=== PATIENT | female | born 1980 | race Caucasian/White ===

== ENCOUNTER 2016-12-14 19:20 | Emergency (ER) | payer BC ==
[2016-12-14 19:48] VITALS: BP 102/71
[2016-12-14] MEDS ORDERED: Phenazopyridine TAB* 100 MG PO ONE (20:35)
[2016-12-14] MEDS ORDERED: Cephalexin CAP* 500 MG PO ONE (20:35)
--- NOTE | 2016-12-14 20:43 | UC ---
Complaint Female HPI - HPI Summary HPI Summary: 5 days of dysuria, hematuria and abdominal pain. - History Of Current Complaint Chief Complaint: UCGU Stated Complaint: POSS UTI Time Seen by Provider: 12/14/16 20:34 Hx Obtained From: Patient Hx Last Menstrual Period: 11/17/16 ?: No Onset/Duration: Sudden Onset, Lasting Days Timing: Constant Severity Initially: Mild Severity Currently: Moderate Character: Dull, Burning Aggravating Factor(s): Urination Associated Signs And Symptoms: Positive: Fever - Allergies/Home Medications Allergies/Adverse Reactions: Allergies Allergy/AdvReac Type Severity Reaction Status Date / Time No Known Allergies Allergy Verified 03/19/13 00:04 PMH/Surg Hx/FS Hx/Imm Hx Previously Healthy: Yes - Surgical History Surgical History: None - Family History Known Family History: Negative: Cardiac Disease, Hypertension - Social History Alcohol Use: None Substance Use Type: None Smoking Status (MU): Never Smoked Tobacco - Immunization History Most Recent Influenza Vaccination: none Most Recent Tetanus Shot: unknown Review of Systems Constitutional: Negative Skin: Negative Eyes: Negative ENT: Negative Respiratory: Negative Cardiovascular: Negative Gastrointestinal: Abdominal Pain Motor: Negative Neurovascular: Negative Musculoskeletal: Negative Neurological: Negative Psychological: Negative All Other Systems Reviewed And Are Negative: Yes Physical Exam Triage Information Reviewed: Yes Appearance: Well-Appearing, Well-Nourished, Pain Distress Vital Signs: Initial Vital Signs Temp 98.6 F 12/14/16 19:42 Pulse 81 12/14/16 19:42 Resp 18 12/14/16 19:42 BP 102/71 12/14/16 19:42 Pulse Ox 99 12/14/16 19:42 Vital Signs Reviewed: Yes Eye Exam: Normal Eyes: Positive: Conjunctiva Clear ENT: Positive: Normal ENT inspection, Hearing grossly normal, Pharynx normal, TMs normal Dental Exam: Normal Neck exam: Normal Neck: Positive: Supple, Nontender, No Lymphadenopathy Respiratory Exam: Normal Respiratory: Positive: Chest non-tender, Lungs clear, Normal breath sounds Cardiovascular Exam: Normal Cardiovascular: Positive: RRR, No Murmur, Pulses Normal Abdomen Description: Positive: No Organomegaly, Soft, CVA Tenderness (R) - neg, CVA Tenderness (L) - neg, Other: - lower abdominal tenderness Bowel Sounds: Positive: Present Musculoskeletal Exam: Normal Musculoskeletal: Positive: Strength Intact, ROM Intact, No Edema Neurological Exam: Normal Neurological: Positive: Alert, Muscle Tone Normal Psychological Exam: Normal Skin Exam: Normal Complaint Female Dx - Course Course Of Treatment: hx obtained exam performed, meds reviewe, UA pos for leuks and blood, given ABX and urine culture sent - Differential Dx/Diagnosis Differential Diagnosis/HQI/PQRI: Sexually Transmitted Disease, Ureteral Stone, Urinary Tract Infection Provider Diagnoses: UTI Discharge - Discharge Plan Condition: Stable Disposition: HOME Prescriptions: Cephalexin CAP* [Keflex CAP*] 500 mg PO BID #14 cap Patient Education Materials: Urinary Tract Infection in Women (ED) Referrals: Aldo Erickson MD [Primary Care Provider] - Additional Instructions: 1. Take the medication as prescribed. 2. Increase your fluid intake and get plenty of rest 3. Follow up with any worsening symtpoms
== END 2016-12-14 20:51 | disposition home or self-care (01) ==
LOC: UCEAST 19:20
DX: N39.0 Urinary tract infection, site not specified (principal)
CPT/HCPCS: 81003; 87086; 99212; A9270-GY; G0463

== ENCOUNTER 2018-05-19 11:17 | Inpatient (IN) | payer BC ==
--- NOTE | 2018-05-19 12:35 | HP ---
General Information - Reason for Visit 37 yo with with a twin gestation and babies with iugr/ less than 10 %ile in baby A. S/d ratio was elevated last week but improved this week This is an ivf at 37 weeks - General Information Maternal Age: 35 Grav: 2 Para: 0 SAB: 1 Estimated Due Date: 06/09/18 Determined By: Early Ultrasound Maternal Blood Type and Rh: O Positive - Results this Serology/RPR Result: Non-Reactive Rubella Result: Non-Immune HBsAg Result: Negative HIV Result: Negative GBS Culture Result: Negative Past Medical History Delivery History: See Records Pertinent Past Medical History: See Records - history of hydrosalpinx Pertinent Past Surgical History: See Records Pertinent Family History: Non-Contributory - Antepartal Records Antepartal Records: Reviewed, Complicated by: - gestational diabetes/ hsv/ vertex / vertex twins Exam Allergies/Adverse Reactions: Allergies No Known Allergies Allergy (Verified 03/19/13 00:04) - Exam Breast: Breast Exam Deferred Extremities: Edema - +1 Heart: Normal Rhythm/Heart Sounds HEENT: No Significant Findings Lungs: Clear Bilaterally Rectal: Rectal Exam Deferred Reflexes: DTR 2+ Targeted Exam Findings See L&D Outpatient Visit Provider Note for Findings: Yes Cervical Exam: 1cm Effacement: 80% Station: -1 Presenting Part: Vertex Membrane Status: Intact EFM Findings - External Monitor Findings Baseline Heart Rate: 140 - x2 External Monitor Findings: Accelerations Present, Variability Moderate Contractions: None Assessment/Plan - Assessment twins for indction for suspected growth restriction at 37 weeks - Obstetrical Risk Factors Obstetrical Risk Factors: IUGR - Plan Plan: Induction
[2018-05-19] MEDS ORDERED: Oxytocin in LR* 20 UNITS/1,000 ML BAG IVPB SCH (13:00)
[2018-05-19 13:14] LABS: Hematocrit 31 % (35-47); Hemoglobin 10.3 g/dl (12.0-16.0); Mean Corpuscular HGB Conc 34 g/dl (31-36); Mean Corpuscular Hemoglobin 28 pg (27-31); Mean Corpuscular Volume 84 fL (80-97); Mean Platelet Volume 10.8 um3 (7.4-10.4); Platelet Count 97 10^3/ul (150-450); Red Blood Count 3.67 10^6/ul (4.00-5.40); Red Cell Distribution Width 16 % (10.5-15); White Blood Count 6.1 10^3/ul (3.5-10.8)
[2018-05-19 13:37] LABS: ABS Basophils 0 10^3/ul (0-0.2); ABS Eosinophils 0 10^3/ul (0-0.6); ABS Monocytes 0.5 10^3/ul (0-0.8); ABS Neutrophils 4.5 10^3/ul (1.5-7.7); ABS Nucleated RBC 0 10^3/ul; Eosinophil % 0.7 % (0-6); Lymphocyte % 16.5 % (25-47); Nucleated Red Blood Cells % 0
[2018-05-19] MEDS ORDERED: OBEPIDURAL* 250 ML EPIDURAL ONE (18:56)
[2018-05-19] MEDS ORDERED: Famotidine TAB* 20 MG PO PRN (20:19)
[2018-05-19] MEDS ORDERED: Phenylephrine IV* 40 MCG/ML 10 ML SYRINGE IV PUSH PRN ×2 (20:19)
[2018-05-19] MEDS ORDERED: EPHEDrine (Pressors)* 50 MG/ML VIAL IV PUSH PRN ×2 (20:19)
[2018-05-19] MEDS ORDERED: Sodium Citrate/Citric Acid* 15 ML UDC PO PRN (20:19)
[2018-05-19] MEDS ORDERED: OBEPIDURAL* 250 ML EPIDURAL SCH (21:00)
[2018-05-20] MEDS ORDERED: Glycerin ADULT SUPP PR PRN (03:59)
[2018-05-20] MEDS ORDERED: Witch Hazel PAD* JAR TOPICAL PRN (03:59)
[2018-05-20] MEDS ORDERED: Measles, Mumps,Rubella VACC* 0.5 ML/VIAL SUBCUT ONE (03:59)
[2018-05-20] MEDS ORDERED: Dibucaine 1% 28.35 GM TUBE PR PRN (03:59)
[2018-05-20] MEDS ORDERED: Oxytocin in LR* 20 UNITS/1,000 ML BAG IVPB SCH (04:00)
[2018-05-20] MEDS ORDERED: ceFAZolin 2 GM PREMIX in ORs 2 GM/50 ML BAG IVPB ONE ×2 (04:02→04:06)
[2018-05-20] MEDS: Ibuprofen TAB* 600 MG PO PRN ×3 (05:48→20:12)
--- NOTE | 2018-05-20 06:26 | PROCNOTE ---
[facility] OB: Delivery Note - Delivery A Date of : 05/20/18 Time of : 03:02 [place] Sex: Male Weight at : 4 lb 13 oz Score 1 Minute: 9 Score 5 Minutes: 9 Gestational Age in Weeks and Days at Delivery: 37 Weeks and 1 Days Delivery Method: Spontaneous Vaginal Labor: Spontaneous Did Patient attempt ?: N/A, No Previous Amniotic Fluid: Clear Estimated Blood Loss: 500 Anesthesia/Analgesia: CEI for Labor Delivered By: Jarvis Coombs B Date of : 05/20/18 Time of : 03:09 Gestational Age in Weeks and Days at Delivery: 37 Weeks and 1 Days Delivery Method: Spontaneous Vaginal Labor: Spontaneous Did Patient attempt ?: N/A, No Previous Amniotic Fluid: Clear Estimated Blood Loss: 500 Anesthesia/Analgesia: CEI for Labor Delivered By: Jarvis Coombs - Nursery Level of Nursery: Regular/Bedside - Perineum Perineal Injury: 1st Degree - Events Delivery Events of Note: Pitocin During Labor, Difficult Delivery, Maternal Temperature during Labor
[2018-05-20] MEDS: Simethicone TAB* 80 MG TAB.CHEW PO SCH ×4 (12:57→21:42)
[2018-05-20] MEDS: Acetaminophen TAB* 325 MG PO PRN ×2 (12:57→18:10)
[2018-05-20] MEDS: Docusate CAP* 100 MG PO SCH ×2 (12:57→18:10)
[2018-05-20] MEDS: Levothyroxine TAB* 25 MCG TAB PO SCH (20:48)
[2018-05-21] MEDS: Docusate CAP* 100 MG PO SCH ×4 (00:48→20:55)
[2018-05-21] MEDS: Levothyroxine TAB* 25 MCG TAB PO SCH (06:31)
[2018-05-21] MEDS: Ibuprofen TAB* 600 MG PO PRN ×2 (06:31→13:48)
[2018-05-21 06:34] LABS: ABS Basophils 0.1 10^3/ul (0-0.2); ABS Eosinophils 0.1 10^3/ul (0-0.6); ABS Lymphocytes 1.6 10^3/ul (1.0-4.8); ABS Monocytes 0.6 10^3/ul (0-0.8); ABS Neutrophils 9.4 10^3/ul (1.5-7.7); ABS Nucleated RBC 0 10^3/ul; Eosinophil % 0.8 % (0-6); Hematocrit 21 % (35-47); Lymphocyte % 13.9 % (25-47); Mean Corpuscular HGB Conc 33 g/dl (31-36); Mean Corpuscular Hemoglobin 28 pg (27-31); Mean Corpuscular Volume 85 fL (80-97); Mean Platelet Volume 10.5 um3 (7.4-10.4); Nucleated Red Blood Cells % 0; Platelet Count 81 10^3/ul (150-450); Red Blood Count 2.51 10^6/ul (4.00-5.40); Red Cell Distribution Width 16 % (10.5-15); White Blood Count 11.8 10^3/ul (3.5-10.8)
[2018-05-21] MEDS: Ferrous Gluconate TAB* 324 MG TAB PO SCH ×2 (08:59→20:55)
[2018-05-21] MEDS: Acetaminophen TAB* 325 MG PO PRN (13:48)
[2018-05-22] MEDS: Acetaminophen TAB* 325 MG PO PRN ×2 (02:28→10:21)
[2018-05-22] MEDS: Ibuprofen TAB* 600 MG PO PRN ×2 (02:28→10:22)
[2018-05-22] MEDS: Levothyroxine TAB* 25 MCG TAB PO SCH (05:55)
[2018-05-22 08:09] VITALS: BP 107/52
[2018-05-22] MEDS: Ferrous Gluconate TAB* 324 MG TAB PO SCH (10:22)
[2018-05-22] MEDS: Docusate CAP* 100 MG PO SCH ×2 (10:22→14:33)
[2018-05-22 10:47] LABS: Hematocrit 20 % (35-47); Hemoglobin 6.7 g/dl (12.0-16.0); Mean Corpuscular HGB Conc 33 g/dl (31-36); Mean Corpuscular Hemoglobin 28 pg (27-31); Mean Corpuscular Volume 85 fL (80-97); Mean Platelet Volume 9.6 um3 (7.4-10.4); Platelet Count 94 10^3/ul (150-450); Red Cell Distribution Width 17 % (10.5-15); White Blood Count 8.5 10^3/ul (3.5-10.8)
--- NOTE | 2018-05-22 11:59 | PTEDU ---
Patient Name: FRITZ BLACKWELL FRITZ BLACKWELL selected video: Never Ever Shake a Baby to view on 05/22/2018 at 11:59:07 AM [id number]
== END 2018-05-22 21:30 | disposition home or self-care (01) | DRG 560 ==
LOC: MCHOBOUT 11:17 → MCHOB 12:38
PROVIDERS: ADMIT Obstetrics & Gynecology; ATTEND Obstetrics & Gynecology
PROC: 10E0XZZ Delivery of Products of Conception, External Approach (ICD-10-PCS; principal; 2018-05-20)
PROC: 3E033VJ Introduction of Other Hormone into Peripheral Vein, Percutaneous Approach (ICD-10-PCS; 2018-05-20)
PROC: 0HQ9XZZ Repair Perineum Skin, External Approach (ICD-10-PCS; 2018-05-20)
PROC: 10907ZC Drainage of Amniotic Fluid, Therapeutic from Products of Conception, Via Natural or Artificial Opening (ICD-10-PCS; 2018-05-20)
DX: O36.5931 Maternal care for other known or suspected poor fetal growth, third trimester, fetus 1 (principal); Z37.2 Twins, both liveborn; O24.429 Gestational diabetes mellitus in childbirth, unspecified control; O70.0 First degree perineal laceration during delivery; O77.0 Labor and delivery complicated by meconium in amniotic fluid; O32.1XX2 Maternal care for breech presentation, fetus 2; O30.043 Twin pregnancy, dichorionic/diamniotic, third trimester; O90.81 Anemia of the puerperium; D64.9 Anemia, unspecified; Z3A.37 37 weeks gestation of pregnancy
CPT/HCPCS: 36415; 85025; 85027; 85060; 86850; 86900; 86901; 88307; 90686; 90707; A9270-GY; J0690

== ENCOUNTER 2018-08-18 13:38 | Day surgery (SDC) | payer BC ==
[2018-08-18] MEDS ORDERED: Dexamethasone TAB* 4 MG ONE (14:25)
[2018-08-18] MEDS ORDERED: Famotidine IV* 10 MG/ML 2 ML (20 mg) ONE (14:25)
[2018-08-18] MEDS ORDERED: Ondansetron ODT TAB* 4 MG ONE (14:25)
[2018-08-18] MEDS ORDERED: fentaNYL* 50 MCG/ML 2 ML VIAL (100 MCG VIAL) ONE (14:46)
[2018-08-18] MEDS ORDERED: Midazolam* 1 MG/ML 5 ML VIAL (5 MG) ONE (14:47)
[2018-08-18] MEDS ORDERED: KETAMINE HCL* 50 MG/ML 10 ML VIAL ONE (14:47)
[2018-08-18] MEDS ORDERED: Lidocaine 1% INJ* 10 MG/ML 30 ML SDV ONE (14:52)
[2018-08-18] MEDS ORDERED: oxyCODONE/Acetamin 5/325 MG* TAB PO PRN (14:54)
[2018-08-18] MEDS ORDERED: fentaNYL* 50 MCG/ML 2 ML VIAL (100 MCG VIAL) IV PRN (14:54)
[2018-08-18] MEDS ORDERED: Scopolamine 1.5 mg* PATCH TRANSDERM PRN (14:54)
[2018-08-18] MEDS ORDERED: DiMENhydriNATE IV* 50 MG/ML VIAL IV PUSH PRN (14:54)
[2018-08-18] MEDS ORDERED: PROCHLORPERAZINE INJ 5 MG/ML 2 ML VIAL IV PRN (14:54)
[2018-08-18] MEDS ORDERED: Morphine VIAL* 4 MG/ML VIAL (1 ml vial) IV PRN (14:54)
[2018-08-18] MEDS ORDERED: Naloxone* 0.4 MG/ML 1 ML VIAL IV PRN (14:54)
[2018-08-18] MEDS ORDERED: ceFOXitin 2 GM IVPREMIX* 2 GM/50 ML BAG ONE (14:55)
[2018-08-18] MEDS ORDERED: Ketorolac INJ* 30 MG/ML 1 ML VIAL ONE ×2 (15:12→15:22)
[2018-08-18] MEDS ORDERED: OXYTOCIN* 10 UNITS/ML 1 ML VIAL ONE ×2 (15:12→15:33)
[2018-08-18] MEDS ORDERED: Propofol* 10 MG/ML 20 ML BTL ONE (15:22)
[2018-08-18] MEDS ORDERED: PROCHLORPERAZINE INJ 5 MG/ML 2 ML VIAL ONE (15:22)
[2018-08-18] MEDS ORDERED: Misoprostol TAB* 200 MCG ONE (15:41)
[2018-08-18 17:25] VITALS: BP 116/80
--- NOTE | 2018-08-18 22:53 | OP ---
DATE OF OPERATION: 08/18/18 - [facility] DATE OF : 76 SURGEON: Jarvis Coombs MD. MATHEMATICAL SCIENTIST: None. ANESTHESIA: Local, paracervical block, and mask anesthesia. PRE-OP DIAGNOSIS: Retained placenta. POST-OP DIAGNOSIS: Retained placenta. OPERATIVE PROCEDURE: D and C. ESTIMATED BLOOD LOSS: 200 cc. SPECIMENS: Include products of conception. FLUIDS: Include 1200 cc crystalloid. FINDINGS: Uterus was anteverted and 10-week size with a mid anterior placental fragment, densely adherent to the anterior wall. DESCRIPTION OF PROCEDURE: The patient was identified, procedure identified as a D and C. The patient was taken to the operating room, prepped and draped in the usual fashion in the dorsal lithotomy position under MAC anesthesia. Then 10 cc of 1% lidocaine was injected at the 12, 4, and 8 o'clock positions. Two single-tooth tenaculum were placed in the anterior lip of the cervix. Cervix was easily dilated up to a #31 Malagon dilator. The #10 suction curette was inserted and suction curettage performed. Not much tissue was obtained in this manner. The serrated and sharp curettes were inserted and sharp curettage performed, again getting small amounts of tissue. The uterine dressing forceps were placed and after many attempts, finally the anterior piece of placenta came loose and was able to be removed. Using the sharp curette, a gritty sensation was felt throughout the circumference. No more tissue was felt in the midline where it had been earlier in the procedure. The suction curette was inserted and suction curettage with no tissue obtained. Good hemostasis was verified. Misoprostol 800 was placed in the rectum and 20 units of Pitocin was added to the second liter bag after 10 units had been added to 500 cc. Good hemostasis was verified. All sponge and instrument counts were correct and the patient returned to recovery room in stable condition. [id number]/[facility] #: [id number] [facility]
[2018-08-21] MEDS ORDERED: Scopolamine PATCH Remove* 1 NOTE MISC PATCH OFF ONE (14:54)
== END 2018-08-18 17:26 | disposition home or self-care (01) ==
LOC: OR 13:38
PROVIDERS: ATTEND Obstetrics & Gynecology
DX: O72.2 Delayed and secondary postpartum hemorrhage (principal); Z37.2 Twins, both liveborn
CPT/HCPCS: 88305; A9270-GY; J0694; J0780; J1885; J2250; J2590; J2704; J3010; J8540